=== PATIENT | male | born 1940 | race African-American/Black ===

== ENCOUNTER 2019-02-15 12:16 | Outpatient (CLI) | payer MEDICARE ==
[~2019-02-15] VITALS: Ht 180.3 cm; Wt 121.1 kg
[2019-02-15 12:40] VITALS: BP 121/64
[2019-02-15] MEDS ORDERED: IOHEXOL 240 MG/ML 50ML VIAL. ONE (13:03)
[2019-02-15 13:57] VITALS: BP 123/70
--- NOTE | 2019-02-15 14:16 | NUR ---
Discharge Note: ROSELIA MOREIRA Discharge instructions and discharge home medications reviewed with Patient and a copy given. All questions have been answered and understanding verbalized. The following instructions and handouts were given:F.A.S.T.; general instructions Patient discharged to Home or Self Care with Family Member via Wheelchair
--- NOTE | 2019-02-16 08:11 | RAD ---
Fluoroscopic evaluation, peritoneal dialysis catheter 02/15/2019 Discussion: The procedure was explained in its entirety to the patient or the patients designated registered representative by a member of the treatment team, including a discussion of the risks, benefits and commonly accepted alternatives to the procedure, as well as the expected consequences of no therapy whatsoever. Discussion of the risks included, but was not limited to, those that are most frequent and those that are rare but possibly severe or life-threatening, as well as the possibility of unforeseen complications. All elements of maximal sterile barrier technique including the use of a cap, mask, sterile gown, sterile gloves, large sterile sheet, appropriate hand hygiene, and 2% chlorhexidine for cutaneous antisepsis (or acceptable alternative antiseptic per current guidelines) were followed for this procedure. Fluoroscopic evaluation demonstrates the peritoneal dialysis catheter to be coiled in the left lower quadrant overlying left ilium. Contrast was administered through the pre-existing catheter. Contrast is freely flushed, but aspiration significantly sluggish. Contrast fills the paracolic gutter. Guidewire was advanced through the catheter freely into the peritoneum. Attempts were made to reposition the catheter using stiff wires. The catheter was positioned slightly more medial of the end of the procedure with prominent peritoneal filling over pericolic gutter filling on contrast injection. It is unsure whether this resulted in adequate peritoneal dialysis. Total fluoroscopy time: 11.1 min Dose area product: 158 Gycm2 Impression: Catheter position in the left lower quadrant. Catheter repositioned slightly more medially. Patient will attempt to use the catheter with surgical follow-up is needed.
== END 2019-02-15 14:15 | disposition home or self-care (01) ==
LOC: INTRAD 12:16
PROVIDERS: ATTEND Internal Medicine Nephrology
DX: T82.49XA Other complication of vascular dialysis catheter, initial encounter (principal); Y83.8 Other surgical procedures as the cause of abnormal reaction of the patient, or of later complication, without mention of misadventure at the time of the procedure; Y92.89 Other specified places as the place of occurrence of the external cause
CPT/HCPCS: 49400; 74190